=== PATIENT | female | born 1970 | race Caucasian/White ===

== ENCOUNTER 2021-02-08 21:16 | Emergency (ER) | payer OTHER ==
[~2021-02-08] VITALS: Ht 162.6 cm; Wt 63.5 kg
[2021-02-08] MEDS ORDERED: SYNTHROID88 MCG PO (21:44)
== END 2021-02-09 08:31 | disposition home or self-care (01) ==
LOC: ER 21:16
DX: G89.18 Other acute postprocedural pain (principal); R10.84 Generalized abdominal pain; R10.32 Left lower quadrant pain; R07.89 Other chest pain; L76.34 Postprocedural seroma of skin and subcutaneous tissue following other procedure